=== PATIENT | female | born 1935 | race Caucasian/White ===

== ENCOUNTER → 2024-12-14 | Outpatient (CLI) | payer MEDICARE, SELFPAY ==
--- NOTE | 2024-12-14 13:15 | CT_ITS ---
PROCEDURE: SINUS/FACIAL BONE REASON FOR EXAM: SINUSITIS TECHNIQUE: CT of the paranasal sinuses without contrast. Coronal and Sagittal reconstruction series were provided. One or more dose reduction techniques were used (e.g., Automated exposure control, adjustment of the mA and/or kV according to patient size, use of iterative reconstruction technique). COMPARISON: None. FINDINGS: Frontal: Well aerated. Ethmoid: Thickened yuan. Sphenoid: Well aerated. Within normal limits. Maxillary: There is complete opacification of the right maxillary sinus. There are sclerotic changes within the yuan of the right maxillary sinus reflexive of chronic sinus disease. Turbinates: Within normal limits. Nasal Septum: Deviated to the left. Mastoids/Middle Ears: Within normal limits. There is thinning of the lens bilaterally, may be due to prior cataract surgery. Correlate clinically. Ventricles and sulci are prominent within the brain consistent with volume loss. Hypodense area is present within subcortical white matter, suggestive of chronic microvascular ischemic disease. CT/Sinus/Facial Bone IMPRESSION: Chronic right maxillary sinusitis. Reading Location: [id number]
== END | disposition home or self-care (01) ==
PROVIDERS: PCP Nurse Practitioner Family; Referring Provider Otolaryngology; Visit Provider Otolaryngology
DX: J32.8 Other chronic sinusitis (principal)
CPT/HCPCS: 70486